=== PATIENT | male | born 1990 ===

== ENCOUNTER 2017-06-25 15:51 | Emergency (ER) | payer OTHER ==
[2017-06-25 16:30] VITALS: BP 149/68; PULSE 74; RESP 16; TEMP 98.7; O2SAT 100
--- NOTE | 2017-06-25 19:05 | ED PDOC ---
HPI: Psych/Substance Abuse Time Seen by Provider: 06/25/17 16:58 Chief Complaint (Nursing): Psychiatric Evaluation Chief Complaint (Provider): Psychiatric Evaluation History Per: Patient History/Exam Limitations: no limitations Onset/Duration Of Symptoms: Mins (prior to arrival) Current Symptoms Are (Timing): Still Present Suicide/Self Injury Attempted (Context): None Associated Symptoms: Depression Additional Complaint(s): 26 year old male with a history of depression was [facility] prior to arrival. Patient reports feeling depressed but is not currently taking any medications. He denies any suicidal or homicidal ideation. Patient offers no other medical complaints at this time. PMD: none provided Past Medical History Reviewed: Historical Data, Nursing Documentation, Vital Signs Vital Signs: Last Vital Signs Temp 98.7 F 06/25/17 16:24 Pulse 74 06/25/17 16:24 Resp 16 06/25/17 16:24 BP 149/68 06/25/17 16:24 Pulse Ox 100 06/25/17 16:24 - Medical History PMH: Depression - Surgical History Surgical History: No Surg Hx - Family History Family History: States: Unknown Family Hx - Social History Current smoker - smoking cessation education provided: No Alcohol: Social Drugs: Denies - Allergies Allergies/Adverse Reactions: Allergies Allergy/AdvReac Type Severity Reaction Status Date / Time No Known Allergies Allergy Verified 06/25/17 16:24 Review of Systems ROS Statement: Except As Marked, All Systems Reviewed And Found Negative Psych: Positive for: Depression. Negative for: Suicidal ideation, Other ( homicidal ideation) Physical Exam - Reviewed Nursing Documentation Reviewed: Yes Vital Signs Reviewed: Yes - Physical Exam Appears: Positive for: Non-toxic, No Acute Distress Head Exam: Positive for: ATRAUMATIC, NORMAL INSPECTION, NORMOCEPHALIC Skin: Positive for: Normal Color, Warm, Dry Eye Exam: Positive for: Normal appearance Neck: Positive for: Normal Respiratory: Positive for: Normal Breath Sounds. Negative for: Respiratory Distress Neurologic/Psych: Positive for: Alert - ECG O2 Sat by Pulse Oximetry: 100 (RA) Pulse Ox Interpretation: Normal Medical Decision Making Medical Decision Making: Plan: Upon arrival to the ER, patient was medically assessed. Crisis evaluation on patient complete. Upon provider evaluation patient is medically stable, and requires no further treatment in the ED at this time. Patient will be discharged home. Counseling was provided and all questions were answered. There is agreement to discharge plan. Scribe Attestation: Documented by Noy Joya, acting as a scribe for Demi Loco PA-C Provider Scribe Attestation: All medical record entries made by the Scribe were at my direction and personally dictated by me. I have reviewed the chart and agree that the record accurately reflects my personal performance of the history, physical exam, medical decision making, and the department course for this patient. I have also personally directed, reviewed, and agree with the discharge instructions and disposition. Disposition - Clinical Impression Clinical Impression: Depression - Patient ED Disposition Is Patient to be Admitted: No Counseled Patient/Family Regarding: Diagnosis, Need For Followup - Disposition [facility] Disposition: Routine/Home Disposition Time: 19:04 Condition: STABLE Instructions: Depression, Adult (DC) Forms: [employer] (Slovak) Print Language: MONTENEGRIN
== END 2017-06-25 19:30 | disposition home or self-care (01) ==
LOC: H.ER 15:51
DX: F32.9 Major depressive disorder, single episode, unspecified (principal); Z00.8 Encounter for other general examination

== ENCOUNTER 2017-08-30 00:08 | Emergency (ER) | payer SELFPAY ==
[2017-08-30 00:57] VITALS: BP 130/72; PULSE 70; RESP 16; TEMP 98.4; O2SAT 99
--- NOTE | 2017-08-30 01:18 | ED PDOC ---
HPI: Psych/Substance Abuse Time Seen by Provider: 08/30/17 00:33 Chief Complaint (Nursing): Psychiatric Evaluation History Per: Patient History/Exam Limitations: no limitations Onset/Duration Of Symptoms: Hrs Current Symptoms Are (Timing): Still Present Additional Complaint(s): Patient has history of depression and bipolar disorder, states that he took double the dose of his zoloft and lamotrigine today, was not trying to hurt himself, states that he has felt anxious and depressed all day. Denies suicidal or homicidal thoughts. Past Medical History Reviewed: Historical Data, Nursing Documentation, Vital Signs Vital Signs: Last Vital Signs Temp 98.4 F 08/30/17 00:45 Pulse 70 08/30/17 00:45 Resp 16 08/30/17 00:45 BP 130/72 08/30/17 00:45 Pulse Ox 99 08/30/17 00:45 - Medical History PMH: Depression - Family History Family History: States: Unknown Family Hx - Allergies Allergies/Adverse Reactions: Allergies Allergy/AdvReac Type Severity Reaction Status Date / Time No Known Allergies Allergy Verified 06/25/17 16:24 Review of Systems ROS Statement: Except As Marked, All Systems Reviewed And Found Negative Psych: Positive for: Anxiety, Depression Physical Exam - Reviewed Nursing Documentation Reviewed: Yes Vital Signs Reviewed: Yes - Physical Exam Appears: Positive for: Well, Non-toxic, No Acute Distress Head Exam: Positive for: ATRAUMATIC, NORMAL INSPECTION, NORMOCEPHALIC Skin: Positive for: Normal Color, Warm, DRY Eye Exam: Positive for: EOMI, Normal appearance, PERRL ENT: Positive for: Normal ENT Inspection Neck: Positive for: Normal, Painless ROM Cardiovascular/Chest: Positive for: Regular Rate, Rhythm Respiratory: Positive for: CNT, Normal Breath Sounds Gastrointestinal/Abdominal: Positive for: Normal Exam, Soft Back: Positive for: Normal Inspection Extremity: Positive for: Normal ROM Neurologic/Psych: Positive for: Alert, coil winder II-XII, Oriented, Mood/Affect (Normal , well appearing). Negative for: Motor/Sensory Deficits - Laboratory Results Result Diagrams: 08/30/17 01:44 08/30/17 01:44 - ECG O2 Sat by Pulse Oximetry: 99 Pulse Ox Interpretation: Normal Medical Decision Making Medical Decision MakinAM A/P: Hx of depression and bipolar presenting with anxiety and depression -patient well appearing, normal vitals -will get crisis eval 230AM Patient seen and assessed by crisis, patient declining admission, states he's not feeling suicidal Will give benadryl for anxious feelings, will d/c home. Disposition - Clinical Impression Clinical Impression: Depression - Disposition Referrals: Radha Dumont [Primary Care Provider] - [facility] [Outside] Disposition: Routine/Home Disposition Time: 02:34 Condition: STABLE Instructions: Depression Forms: [employer] (Turkish) Print Language: NEPALI
[2017-08-30 01:48] LABS: BASO % 0.5 % (0.0-2.0); EOS # 0.2 K/uL (0.0-0.7); EOS % 3.1 % (0.0-4.0); HEMOGLOBIN 15.1 g/dL (12.0-18.0); LYMPH # 3.1 K/uL (1.0-4.3); LYMPH % 39.7 % (20.0-40.0); MEAN CELL VOLUME 89.7 fl (80.0-94.0); MEAN CORPUSCULAR HEMOGLOBIN 30.5 pg (27.0-31.0); MEAN CORPUSCULAR HGB CONC 33.9 g/dL (33.0-37.0); MONO # 0.6 K/uL (0.0-0.8); MONO % 7.3 % (0.0-10.0); NEUT # 3.8 K/uL (1.8-7.0); NEUT % 49.4 % (50.0-75.0); NRBC % 0.1 % (0.0-0.0); RBC 4.95 Mil/uL (4.40-5.90); RED CELL DISTRIBUTION WIDTH 13.3 % (11.5-14.5); WHITE BLOOD COUNT 7.8 K/uL (4.8-10.8)
[2017-08-30 01:55] LABS: ACETAMINOPHEN < 10.0 ug/ml (10.0-30.0); CALCIUM 8.8 mg/dL (8.4-10.2); GFR AFRICAN-AMERICAN > 60; GFR NON-AFRICAN AMERICAN > 60; SALICYLATE < 1.0 mg/dl
[2017-08-30 02:16] LABS: BLOOD UREA NITROGEN 16 mg/dl (9-20)
[2017-08-30 02:54] LABS: SQUAMOUS EPITHIAL < 1 /hpf (0-5); URINE BILIRUBIN NEGATIVE (NEGATIVE); URINE BLOOD NEGATIVE (NEGATIVE); URINE CLARITY CLEAR (Clear); URINE COLOR YELLOW (YELLOW); URINE GLUCOSE (UA) NEG (Normal); URINE LEUKOCYTE ESTERASE TRACE Leu/uL (Negative); URINE PROTEIN NEGATIVE (NEGATIVE); URINE UROBILINOGEN 0.2-1.0 mg/dL (0.2-1.0)
[2017-08-30 03:34] LABS: BARBITURATES, UR NEGATIVE (NEGATIVE); BENZODIAZEPINES, UR NEGATIVE (NEGATIVE); OPIATES, UR NEGATIVE (NEGATIVE); PHENCYCLIDINE, UR NEGATIVE (NEGATIVE)
== END 2017-08-30 03:15 | disposition home or self-care (01) ==
LOC: H.ER 00:08
DX: F32.9 Major depressive disorder, single episode, unspecified (principal); F31.9 Bipolar disorder, unspecified; F41.9 Anxiety disorder, unspecified

== ENCOUNTER 2017-11-11 17:08 | Emergency (ER) | payer SELFPAY ==
[2017-11-11 17:54] VITALS: BP 145/62; PULSE 75; RESP 18; TEMP 98.7; O2SAT 100
--- NOTE | 2017-11-11 18:12 | ED PDOC ---
Lower Extremity Pain/Injury Time Seen by Provider: 11/11/17 18:03 Chief Complaint (Nursing): Abnormal Skin Integrity Chief Complaint (Provider): mutiple insect bites History Per: Patient, Rn Documentation (friend at bedside is translating for patient in Russian) History/Exam Limitations: no limitations Onset/Duration Of Symptoms: Days (x1) Current Symptoms Are (Timing): Still Present Additional Complaint(s): 27 y/o left hand dominant male accompanied by friend presents to the ED with complaints of insect bites to his right arm sustained yesterday. Patient states an unknown insect bit him several times to right arm yesterday at [place]. Today patient noticed pain, swelling and redness to right arm prompting ED visit. PMD: None Past Medical History Reviewed: Historical Data, Nursing Documentation, Vital Signs Vital Signs: Last Vital Signs Temp 98.7 F 11/11/17 17:51 Pulse 75 11/11/17 17:51 Resp 18 11/11/17 17:51 BP 145/62 11/11/17 17:51 Pulse Ox 100 11/11/17 17:51 - Medical History PMH: Bipolar Disorder, Depression - Surgical History Surgical History: No Surg Hx - Family History Family History: States: No Known Family Hx - Living Arrangements Living Arrangements: With Family - Social History Current smoker - smoking cessation education provided: No Alcohol: None Drugs: Denies - Immunization History Hx Tetanus Toxoid Vaccination: Yes - Home Medications Home Medications: Ambulatory Orders Medication Instructions Recorded Clindamycin [Cleocin] 300 mg PO QID #28 cap 11/11/17 Ibuprofen [Motrin] 600 mg PO Q6 PRN #15 tab 11/11/17 Prednisone 50 mg PO DAILY #5 tablet 11/11/17 - Allergies Allergies/Adverse Reactions: Allergies Allergy/AdvReac Type Severity Reaction Status Date / Time No Known Allergies Allergy Verified 11/11/17 17:51 Review of Systems ROS Statement: Except As Marked, All Systems Reviewed And Found Negative Constitutional: Negative for: Fever, Chills ENT: Negative for: Throat Pain, Throat Swelling Respiratory: Negative for: Shortness of Breath Skin: Positive for: Rash (insect bites right arm) Physical Exam - Reviewed Nursing Documentation Reviewed: Yes Vital Signs Reviewed: Yes - Physical Exam Appears: Positive for: Well, Non-toxic, No Acute Distress Head Exam: Positive for: NORMOCEPHALIC Skin: Positive for: Normal Color. Negative for: Rash Eye Exam: Positive for: Normal appearance, EOMI, PERRL Extremity: Positive for: Normal ROM, Other (Multiple insect bites with localized edema and erythema noted to right arm. Appearance concerning for allergic reaction vs possible infection). Negative for: Pedal Edema, Deformity Neurologic/Psych: Positive for: Alert, Oriented (x3). Negative for: Motor/ Sensory Deficits - ECG O2 Sat by Pulse Oximetry: 100 (RA) Pulse Ox Interpretation: Normal Medical Decision Making Medical Decision Making: Time: 1808 Impression: multiple insect bites Plan: -- Motrin 600 mg PO -- SOLU-medrol 125 mg IM -- Patient to be discharged with prescriptions for Prednisone, Motrin, and Clindamycin. -- Patient advised to see clinic in two to three days for wound check and to return to the ED if symptoms worsen. Scribe Attestation: Documented by Randell Connolly, acting as a scribe for Kristine Rivera PA-C. Provider Scribe Attestation: All medical record entries made by the Scribe were at my direction and personally dictated by me. I have reviewed the chart and agree that the record accurately reflects my personal performance of the history, physical exam, medical decision making, and the department course for this patient. I have also personally directed, reviewed, and agree with the discharge instructions and disposition. Disposition - Clinical Impression Clinical Impression: Insect bite - Patient ED Disposition Is Patient to be Admitted: No Counseled Patient/Family Regarding: Diagnosis, Need For Followup, Rx Given - Disposition Referrals: [facility] [Outside] Disposition: Routine/Home Disposition Time: 18:32 Condition: STABLE Additional Instructions: Take prescription meds as directed. Take [id number] Benadryl along with prescribed medications for itch relief. Keep area clean and dry. Do not apply anything topical. Follow-up in 2-3 days with clinic or return any time if worse. Prescriptions: Clindamycin [Cleocin] 300 mg PO QID #28 cap Ibuprofen [Motrin] 600 mg PO Q6 PRN #15 tab PRN Reason: Pain, Moderate (4-7) Prednisone 50 mg PO DAILY #5 tablet Instructions: Insect Bites and Stings (DC) Forms: [employer] (Russian) Print Language: TURKMEN
== END 2017-11-11 19:01 | disposition home or self-care (01) ==
LOC: H.ER 17:08
DX: S40.861A Insect bite (nonvenomous) of right upper arm, initial encounter (principal); W57.XXXA Bitten or stung by nonvenomous insect and other nonvenomous arthropods, initial encounter; Y92.89 Other specified places as the place of occurrence of the external cause
CPT/HCPCS: 96372; 99283; J2930

== ENCOUNTER 2017-12-06 23:09 | Emergency (ER) | payer SELFPAY ==
[2017-12-06] MEDS ORDERED: Sodium Chloride 0.9% 1,000 ML IV STA (23:41)
--- NOTE | 2017-12-07 00:23 | ED PDOC ---
HPI: Fever Time Seen by Provider: 12/06/17 23:32 Symptoms Associated With Fever: Other (fever, chills, body ache). denies: Vomiting, Diarrhea Additional Comments: Felice Ruiz is a 27 year old male, with past medical history of depression, who presents to the ED complaining of fever and chills onset yesterday evening. Patient's temperature was tactile and also reports generalized body aches, senses weakness and sore throat. He denies any vomiting or diarrhea. No further medical complaints. PMD: Dr. Franklin Past Medical History Reviewed: Historical Data, Nursing Documentation, Vital Signs Vital Signs: Last Vital Signs Temp 99.8 F H 12/06/17 23:19 Pulse 99 H 12/06/17 23:19 Resp 19 12/06/17 23:19 BP 123/70 12/06/17 23:19 Pulse Ox 98 12/07/17 00:59 - Medical History PMH: Bipolar Disorder, Depression Denies: Diabetes, Hepatitis, HIV, HTN, Seizures, Sexually Transmitted Disease - Surgical History Surgical History: No Surg Hx - Family History Family History: States: Unknown Family Hx - Immunization History Hx Tetanus Toxoid Vaccination: Yes - Home Medications Home Medications: Ambulatory Orders Medication Instructions Recorded Clindamycin [Cleocin] 300 mg PO QID #28 cap 11/11/17 Ibuprofen [Motrin] 600 mg PO Q6 PRN #15 tab 11/11/17 Prednisone 50 mg PO DAILY #5 tablet 11/11/17 Oseltamivir [Tamiflu] 75 mg PO BID #10 cap 12/07/17 - Allergies Allergies/Adverse Reactions: Allergies Allergy/AdvReac Type Severity Reaction Status Date / Time No Known Allergies Allergy Verified 11/11/17 17:51 Review of Systems ROS Statement: Except As Marked, All Systems Reviewed And Found Negative Constitutional: Positive for: Fever (tactile), Chills, Weakness, Other ( generalized body aches) ENT: Positive for: Throat Pain Gastrointestinal: Negative for: Vomiting, Diarrhea Psych: Positive for: Depression Physical Exam - Reviewed Nursing Documentation Reviewed: Yes Vital Signs Reviewed: Yes - Physical Exam Appears: Positive for: Uncomfortable Head Exam: Positive for: ATRAUMATIC, NORMAL INSPECTION, NORMOCEPHALIC Skin: Positive for: Normal Color, Warm, Dry Eye Exam: Positive for: EOMI, Normal appearance, PERRL ENT: Positive for: Pharynx Is (erythematous) Neck: Positive for: Normal, Painless ROM Cardiovascular/Chest: Positive for: Regular Rate, Rhythm, Chest Non Tender Respiratory: Positive for: Normal Breath Sounds. Negative for: Respiratory Distress Gastrointestinal/Abdominal: Positive for: Normal Exam, Soft. Negative for: Tenderness Back: Positive for: Normal Inspection Extremity: Positive for: Normal ROM (upper and lower). Negative for: Deformity , Swelling Neurologic/Psych: Positive for: Alert, Oriented. Negative for: Motor/Sensory Deficits - Laboratory Results Result Diagrams: 12/07/17 00:30 12/07/17 00:30 - ECG O2 Sat by Pulse Oximetry: 98 (RA) Pulse Ox Interpretation: Normal Medical Decision Making Medical Decision Making: Time: 23:32 Initial Impression: 27 year old male presenting with flu like symptoms. Initial Plan: --CMP --Lact Acid, plasma --Urine dipstick --Sodium Chloride 1,000 ml IV --Tamiflu 75 mg PO --Toradol 30 mg IV --Tylenol 975 mg PO --Blood culture --Heplock insertion --Influenza AB --Rapid strep --Urinalysis 01:23 -Labs reviewed and showed no clinical significant abnormalities. Patient reports improvement of symptoms. Will treat for flu in spite of negative flu swab due to strong clinical suspicion. Diagnosis influenza-like illness. Scribe Attestation: Documented by Jamaica Perez, acting as a scribe for Dr. Devan Choi MD. Provider Scribe Attestation: All medical record entries made by the Scribe were at my direction and personally dictated by me. I have reviewed the chart and agree that the record accurately reflects my personal performance of the history, physical exam, medical decision making, and the department course for this patient. I have also personally directed, reviewed, and agree with the discharge instructions and disposition. Disposition - Clinical Impression Clinical Impression: Influenza - Disposition Disposition: Routine/Home Disposition Time: 01:23 Condition: STABLE Prescriptions: Oseltamivir [Tamiflu] 75 mg PO BID #10 cap Instructions: Flu Forms: [facility] (Kittitian) Print Language: SAMI
[2017-12-07 00:40] LABS: BASO % 0.3 % (0.0-2.0); EOS # 0.1 K/uL (0.0-0.7); EOS % 1.4 % (0.0-4.0); HEMOGLOBIN 14.5 g/dL (12.0-18.0); LYMPH # 1.5 K/uL (1.0-4.3); LYMPH % 14.5 % (20.0-40.0); MEAN CELL VOLUME 89.5 fl (80.0-94.0); MEAN CORPUSCULAR HEMOGLOBIN 30.7 pg (27.0-31.0); MEAN CORPUSCULAR HGB CONC 34.3 g/dL (33.0-37.0); MEAN PLATELET VOLUME 8.3 fl (7.2-11.7); MONO # 0.9 K/uL (0.0-0.8); MONO % 8.3 % (0.0-10.0); NEUT % 75.5 % (50.0-75.0); RBC 4.72 Mil/uL (4.40-5.90); RED CELL DISTRIBUTION WIDTH 13.3 % (11.5-14.5); WHITE BLOOD COUNT 10.6 K/uL (4.8-10.8)
[2017-12-07 00:48] LABS: ALB/GLOB RATIO 1.6 (1.0-2.1); ALBUMIN 4.4 g/dL (3.5-5.0); ALT/SGPT 35 U/L (21-72); AST/SGOT 19 U/L (17-59); BLOOD UREA NITROGEN 20 mg/dl (9-20); CALCIUM 9.1 mg/dL (8.4-10.2); GFR AFRICAN-AMERICAN > 60; GFR NON-AFRICAN AMERICAN > 60
[2017-12-07] MEDS ORDERED: Sodium Chloride 0.9% 1,000 ML IV STA (01:25)
[2017-12-07 01:31] VITALS: TEMP 98.9
[2017-12-07 01:37] VITALS: RESP 17
[2017-12-07 02:22] VITALS: BP 117/71; PULSE 86; O2SAT 98
== END 2017-12-07 02:26 | disposition home or self-care (01) ==
LOC: H.ER 23:09
DX: J11.1 Influenza due to unidentified influenza virus with other respiratory manifestations (principal); F31.9 Bipolar disorder, unspecified
CPT/HCPCS: 80053; 83605; 85025; 87040; 87070; 87430; 87804; 96361; 96374; 96375; 96376; 99284; J1885; J2405; J7030